=== PATIENT | male | born 1985 | race Two or more races ===

== ENCOUNTER 2023-05-24 01:17 | Emergency (ER) | payer MEDICAID, OTHER ==
[~2023-05-24] VITALS: Ht 172.7 cm; Wt 86.0 kg
[2023-05-24 01:19] VITALS: TEMP 98.5
[2023-05-24 02:09] VITALS: BP 133/95; PULSE 65; RESP 15
[2023-05-24] MEDS ORDERED: METH-812 PO (02:23)
[2023-05-24] MEDS ORDERED: NAPR-1025 PO (02:23)
[2023-05-24] MEDS: KETOROLAC TROMETHAMINE 60 MG/2 ML VIAL IM ONE (02:31)
[2023-05-24] MEDS: HYDROCODONE/ACETAMINOPHEN 5-325 MG TABLET PO ONE (02:31)
== END 2023-05-24 02:47 | disposition home or self-care (01) ==
LOC: EMS 01:20
DX: M54.6 Pain in thoracic spine (principal)
CPT/HCPCS: 99283; 96372; J1885